=== PATIENT | female | born 1970 | race Caucasian/White ===

== ENCOUNTER 2017-04-18 20:26 | Emergency (ER) | payer OTHER ==
[2017-04-18 21:30] VITALS: BP 122/94
== END 2017-04-18 21:30 | disposition home or self-care (01) ==
LOC: ED 20:26
DX: R19.7 Diarrhea, unspecified (principal); J02.9 Acute pharyngitis, unspecified; R11.2 Nausea with vomiting, unspecified; R63.0 Anorexia; R53.1 Weakness; R42 Dizziness and giddiness; M79.1 Myalgia; M06.9 Rheumatoid arthritis, unspecified; F32.1 Major depressive disorder, single episode, moderate; Z88.6 Allergy status to analgesic agent; Z79.899 Other long term (current) drug therapy
CPT/HCPCS: Q0162

== ENCOUNTER 2019-02-24 17:10 | Emergency (ER) | payer OTHER ==
[~2019-02-24] VITALS: Ht 162.6 cm; Wt 83.5 kg
[2019-02-24 17:18] VITALS: BP 142/89; Ht 162.6 cm; Wt 83.5 kg
== END 2019-02-24 19:25 | disposition home or self-care (01) ==
LOC: ED 17:10
DX: G89.29 Other chronic pain (principal); I10 Essential (primary) hypertension; M54.9 Dorsalgia, unspecified; M19.90 Unspecified osteoarthritis, unspecified site; E78.00 Pure hypercholesterolemia, unspecified; F32.9 Major depressive disorder, single episode, unspecified; Z88.6 Allergy status to analgesic agent
CPT/HCPCS: J1100; J1885

== ENCOUNTER 2019-03-04 16:39 | Emergency (ER) | payer OTHER ==
[~2019-03-04] VITALS: Ht 154.9 cm; Wt 78.5 kg
[2019-03-04 16:46] VITALS: Ht 154.9 cm; Wt 78.5 kg
[2019-03-04 19:00] VITALS: BP 120/70
== END 2019-03-04 19:00 | disposition home or self-care (01) ==
LOC: ED 16:39
DX: F31.9 Bipolar disorder, unspecified (principal); F41.9 Anxiety disorder, unspecified; G89.4 Chronic pain syndrome; I10 Essential (primary) hypertension; E78.00 Pure hypercholesterolemia, unspecified; M06.9 Rheumatoid arthritis, unspecified; Z88.6 Allergy status to analgesic agent
CPT/HCPCS: J1100; J1885

== ENCOUNTER 2019-06-26 03:32 | Emergency (ER) | payer OTHER | END 2019-06-26 06:14 | disposition other institution (70) | LOC: ED 03:32 | DX: Z02.89 Encounter for other administrative examinations (principal) ==

== ENCOUNTER 2019-06-26 03:32 | Emergency (ER) | payer OTHER ==
[~2019-06-26] VITALS: Ht 154.9 cm; Wt 80.7 kg
[2019-06-26 03:40] VITALS: Ht 154.9 cm; Wt 80.7 kg
[2019-06-26 06:14] VITALS: BP 159/82
== END 2019-06-26 06:14 | disposition other institution (70) ==
LOC: ED 03:32
DX: R07.89 Other chest pain (principal); F43.21 Adjustment disorder with depressed mood; E78.00 Pure hypercholesterolemia, unspecified; M06.9 Rheumatoid arthritis, unspecified; M45.9 Ankylosing spondylitis of unspecified sites in spine; Z98.84 Bariatric surgery status; Z88.6 Allergy status to analgesic agent
CPT/HCPCS: 82962; Q0092

== ENCOUNTER 2019-11-30 15:19 | Emergency (ER) | payer OTHER ==
[~2019-11-30] VITALS: Ht 165.1 cm; Wt 82.1 kg
[2019-11-30 15:28] VITALS: Ht 165.1 cm; Wt 82.1 kg
[2019-11-30 18:58] VITALS: BP 148/81
== END 2019-11-30 18:58 | disposition home or self-care (01) ==
LOC: ED 15:19
DX: F07.81 Postconcussional syndrome (principal); M54.2 Cervicalgia; R11.2 Nausea with vomiting, unspecified; W01.0XXA Fall on same level from slipping, tripping and stumbling without subsequent striking against object, initial encounter; Y93.89 Activity, other specified; Y92.89 Other specified places as the place of occurrence of the external cause; Y99.8 Other external cause status
CPT/HCPCS: J0780; J1200

== ENCOUNTER 2019-12-15 16:27 | Emergency (ER) | payer OTHER ==
[~2019-12-15] VITALS: Ht 154.9 cm; Wt 77.1 kg
[2019-12-15 16:33] VITALS: Ht 154.9 cm; Wt 77.1 kg
[2019-12-15 17:12] LABS: BASOPHIL % 0.1 % (0-2); PLATELET COUNT 372 x10^3mcL (130-400)
[2019-12-15 17:33] LABS: CARBON DIOXIDE 25.6 mmol/L (21-32); CHLORIDE SERUM 98 mmol/L (98-107); GLUCOSE SERUM 104 mg/dL (74-106); POTASSIUM SERUM 4.1 mmol/L (3.5-5.1); SODIUM SERUM 133 mmol/L (136-145)
[2019-12-15 17:34] LABS: ALBUMIN 3.4 g/dL (3.4-5.0); ALKALINE PHOSPHATASE 110 U/L (46-116); ALT/SGPT 52 U/L (14-59); AST/SGOT 40 U/L (15-37); BILIRUBIN TOTAL 0.4 mg/dL (0.20-1.00); CALCIUM 9.3 mg/dL (8.5-10.1); CREATININE SERUM 0.8 mg/dL (0.6-1.0); GFR1 > 60 mL/min; TOTAL PROTEIN, SERUM 8.1 g/dL (6.4-8.2)
[2019-12-15 17:35] LABS: AMYLASE 83 U/L (25-115); LIPASE 246 IU/L (73-393)
[2019-12-15 19:10] VITALS: BP 127/84
== END 2019-12-15 19:11 | disposition home or self-care (01) ==
LOC: ED 16:27
PROVIDERS: Emergency Medicine
DX: F10.99 Alcohol use, unspecified with unspecified alcohol-induced disorder (principal); R11.2 Nausea with vomiting, unspecified; R51 Headache; I10 Essential (primary) hypertension; E78.00 Pure hypercholesterolemia, unspecified; M19.90 Unspecified osteoarthritis, unspecified site; R10.816 Epigastric abdominal tenderness; Z88.6 Allergy status to analgesic agent
CPT/HCPCS: 36415; Q0162